=== PATIENT | male | born 1960 | race Caucasian/White ===

== ENCOUNTER 2024-07-21 20:48 | Emergency (ER) | payer SELFPAY ==
[2024-07-21 20:58] VITALS: BP 151/98; PULSE 109
[2024-07-21] MEDS: Benzonatate 100 MG Cap PO ONE (22:56)
== END 2024-07-21 23:00 | disposition home or self-care (01) ==
LOC: JD.ED 20:48
DX: J98.8 Other specified respiratory disorders (principal); I50.9 Heart failure, unspecified; F17.200 Nicotine dependence, unspecified, uncomplicated
CPT/HCPCS: 71046; 87426; 99283; A9270; 99284